=== PATIENT | male | born 1990 | race Caucasian/White ===

== ENCOUNTER 2020-06-02 20:17 | Emergency (ER) | payer SELFPAY ==
[2020-06-02] MEDS ORDERED: Sulfamethoxazole/Trimethoprim 800-160 MG Tab PO ONE (21:10)
[2020-06-02] MEDS ORDERED: traMADol 50 MG Tab PO ONE (21:10)
--- NOTE | 2020-06-02 21:16 | EDM.PDOC ---
ED HPI GENERAL MEDICAL PROBLEM - General Chief Complaint: Lower Extremity Injury/Pain Stated Complaint: PAIN IN TOE Time Seen by Provider: 06/02/20 20:45 Source of Information: Reports: Patient History Limitations: Reports: No Limitations - History of Present Illness INITIAL COMMENTS - FREE TEXT/NARRATIVE: 30 YO WM PRESENTS TO ER WITH LEFT GREAT TOE PAIN AND SWELLING X 4 DAYS. PT REPORTS TENDERNESS BEGAN 4 DAYS AGO BUT TODAY HE NOTICED A PUS POCKET DEVELOP AT THE BASE OF HIS LEFT GREAT TOE PROMPTING ER EVALUATION. PT DENIES ANY HISTORY OF INGROWN TOENAIL OR INJURY TO FOOT/TOES. PT DENIES FEVER/CHILLS, NO ERYTHEMA OR ECCHYMOSIS. PT DENIES ANY OTHER COMPLAINTS AT THIS TIME. PT REPORTS WEARING STEEL TOE BOOTS AND WONDERS IF HIS SHOES ARE THE ISSUE. Duration: Day(s): (4) Location: Reports: Lower Extremity, Left Quality: Reports: Ache Severity: Moderate Improves with: Reports: Rest Worsens with: Reports: Movement Associated Symptoms: Reports: No Other Symptoms - Related Data Allergies Allergy/AdvReac Type Severity Reaction Status Date / Time No Known Drug Allergies Allergy Cannot Verified 06/02/20 20:29 Remember Home Meds: Home Meds Sulfamethoxazole/Trimethoprim [Septra DS] 1 each PO BID #20 tab 06/02/20 [Rx] traMADol [Ultram] 50 mg PO Q4H PRN #15 tab 06/02/20 [Rx] Past Medical History HEENT History: Reports: Other (See Below) Other HEENT History: glasses Musculoskeletal History: Reports: Arthritis, Other (See Below) Other Musculoskeletal History: scoliosis. bone spurs in hip. sciatica Psychiatric History: Reports: Anxiety, PTSD, Other (See Below) Other Psychiatric History: social anxiety disorder - Infectious Disease History Infectious Disease History: Reports: Chicken Pox, Influenza - Past Surgical History HEENT Surgical History: Reports: None Musculoskeletal Surgical History: Reports: Other (See Below) Other Musculoskeletal Surgeries/Procedures:: left wrist secondary to injury to wrist from accident Social & Family History - Tobacco Use Smoking Status *Q: Current Every Day Smoker Years of Tobacco use: 19 Packs/Tins Daily: 1 Second Hand Smoke Exposure: Yes - Caffeine Use Caffeine Use: Reports: Coffee - Recreational Drug Use Recreational Drug Use: Yes Drug Use in Last 12 Months: Yes Recreational Drug Type: Reports: Marijuana/Hashish Recreational Drug Use Frequency: Weekly Review of Systems - Review of Systems Review Of Systems: See Below Constitutional: Reports: No Symptoms Eyes: Reports: No Symptoms Ears: Reports: No Symptoms Nose: Reports: No Symptoms Mouth/Throat: Reports: No Symptoms Respiratory: Reports: No Symptoms Cardiovascular: Reports: No Symptoms GI/Abdominal: Reports: No Symptoms Genitourinary: Reports: No Symptoms Musculoskeletal: Reports: No Symptoms Skin: Reports: Other (PUS POCKET WITH MILD SWELLING TO LEFT GREAT TOE) Neurological: Reports: No Symptoms Psychiatric: Reports: No Symptoms ED EXAM, GENERAL - Physical Exam Exam: See Below Exam Limited By: No Limitations General Appearance: Alert, WD/WN, No Apparent Distress Head: Atraumatic, Normocephalic Neck: Normal Inspection, Supple, Non-Tender, Full Range of Motion Respiratory/Chest: No Respiratory Distress, Lungs Clear, Normal Breath Sounds, No Accessory Muscle Use, Chest Non-Tender Cardiovascular: Normal Peripheral Pulses, Regular Rate, Rhythm, No Edema, No Gallop, No JVD, No Murmur, No Rub GI/Abdominal: Normal Bowel Sounds, Soft, Non-Tender, No Organomegaly, No Distention, No Abnormal Bruit, No Mass Back Exam: Normal Inspection, Full Range of Motion, NT Extremities: Increased Warmth, Redness, Other (PUS POCKET WITH MILD SWELLING TO LEFT GREAT TOE) Neurological: Alert, Oriented, CN II-XII Intact, Normal Cognition, Normal Gait, Normal Reflexes, No Motor/Sensory Deficits Psychiatric: Normal Affect, Normal Mood Skin Exam: Warm, Dry, Intact, Normal Color, No Rash Lymphatic: No Adenopathy Course - Vital Signs Last Recorded V/S: Last Vital Signs Temp 36.8 C 06/02/20 20:29 Pulse 74 06/02/20 20:29 Resp 20 06/02/20 20:29 BP 114/74 06/02/20 20:29 Pulse Ox 98 06/02/20 20:29 - Orders/Labs/Meds Orders: Active Orders 24 hr Category Date Time Status Sulfamethoxazole/Trimethoprim [Septra DS] Med 06/02/20 21:10 Once 1 tab PO ONETIME ONE traMADol [Ultram] Med 06/02/20 21:10 Once 100 mg PO ONETIME ONE Departure - Departure Time of Disposition: 21:17 Disposition: Home, Self-Care 01 Condition: Good Clinical Impression: Paronychia of great toe of left foot - Discharge Information Prescriptions: Sulfamethoxazole/Trimethoprim [Septra DS] 1 each PO BID #20 tab traMADol [Ultram] 50 mg PO Q4H PRN #15 tab PRN Reason: Pain Instructions: Paronychia Referrals: Klarissa Gnozalez MD [Physician] - Forms: ED Department Discharge, ED Return to Work/School Form Additional Instructions: 1. DISCHARGE HOME 2. SEPTRA DS TWICE/DAY X 10 DAYS 3. ULTRAM 50 MG EVERY 4-6 HOURS NEEDED FOR PAIN 4. MOTRIN 600MG EVERY 6 HOURS FOR PAIN 5. FOLLOW UP WITH PCP FOR FURTHER EVALUATION AND TREATMENT 6. RETURN TO ER FOR WORSENING SYMPTOMS Sepsis Event Note (ED) - Evaluation Sepsis Screening Result: No Definite Risk - Focused Exam Vital Signs: Vital Signs Temp Pulse Resp BP Pulse Ox 06/02/20 20:29 36.8 C 74 20 114/74 98 - My Orders Last 24 Hours: My Active Orders 06/02/20 21:10 Sulfamethoxazole/Trimethoprim [Septra DS] 1 tab PO ONETIME ONE traMADol [Ultram] 100 mg PO ONETIME ONE - Assessment/Plan Last 24 Hours: My Active Orders 06/02/20 21:10 Sulfamethoxazole/Trimethoprim [Septra DS] 1 tab PO ONETIME ONE traMADol [Ultram] 100 mg PO ONETIME ONE Assessment:: 1. PARONYCHIA OF LEFT GREAT TOE Plan: 1. DISCHARGE HOME 2. SEPTRA DS TWICE/DAY X 10 DAYS 3. ULTRAM 50 MG EVERY 4-6 HOURS NEEDED FOR PAIN 4. MOTRIN 600MG EVERY 6 HOURS FOR PAIN 5. FOLLOW UP WITH PCP FOR FURTHER EVALUATION AND TREATMENT 6. RETURN TO ER FOR WORSENING SYMPTOMS
== END 2020-06-02 21:30 | disposition home or self-care (01) ==
LOC: KA.ED 20:17
DX: L03.032 Cellulitis of left toe (principal); F17.210 Nicotine dependence, cigarettes, uncomplicated
CPT/HCPCS: 99283; A9270

== ENCOUNTER 2020-09-23 20:27 | Emergency (ER) | payer SELFPAY ==
--- NOTE | 2020-09-23 21:48 | EDM.PDOCBH ---
ED HPI GENERAL MEDICAL PROBLEM - General Chief Complaint: Behavioral/Psych Stated Complaint: FEELING SUIDAL Time Seen by Provider: 09/23/20 21:22 Source of Information: Reports: Patient, Other (friend) History Limitations: Reports: No Limitations - History of Present Illness INITIAL COMMENTS - FREE TEXT/NARRATIVE: Patient presents requesting help and treatment for suicidal thoughts and intent. He has been having suicidal thoughts for quite awhile and [place] lay on the [place] to get run [place]. He has cut his arms. He is having uncontrolled anger outbursts with his and she is scared of him. He wants help and would like to go to the [facility]. He used meth 3 days ago most recently. He denies fever. He hasn't had Covid and last tested negative about 6 weeks ago. Generalized Pain Score (Numeric/FACES): 8 - Related Data Allergies Allergy/AdvReac Type Severity Reaction Status Date / Time No Known Drug Allergies Allergy Cannot Verified 09/23/20 20:35 Remember Past Medical History HEENT History: Reports: Other (See Below) Other HEENT History: glasses Musculoskeletal History: Reports: Arthritis, Other (See Below) Other Musculoskeletal History: scoliosis. bone spurs in hip. sciatica Psychiatric History: Reports: Anxiety, Bipolar, Depression, PTSD, Other (See Below) Other Psychiatric History: social anxiety disorder - Infectious Disease History Infectious Disease History: Reports: Chicken Pox, Influenza - Past Surgical History HEENT Surgical History: Reports: None Musculoskeletal Surgical History: Reports: Other (See Below) Other Musculoskeletal Surgeries/Procedures:: left wrist secondary to injury to wrist from accident Social & Family History - Tobacco Use Tobacco Use Status *Q: Current Every Day Tobacco User Years of Tobacco use: 19 Packs/Tins Daily: 1 - Caffeine Use Caffeine Use: Reports: Coffee - Recreational Drug Use Recreational Drug Type: Reports: Marijuana/Hashish, Methamphetamine Recreational Drug Use Frequency: Weekly ED ROS GENERAL - Review of Systems Review Of Systems: See Below Constitutional: Denies: Fever, Chills, Malaise, Weakness HEENT: Denies: Ear Pain, Throat Pain, Vision Change Respiratory: Denies: Shortness of Breath, Cough Cardiovascular: Denies: Chest Pain, Lightheadedness, Syncope GI/Abdominal: Denies: Abdominal Pain, Diarrhea, Vomiting : Denies: Dysuria, Flank Pain Musculoskeletal: Denies: Neck Pain, Shoulder Pain, Arm Pain, Back Pain Skin: Denies: Cyanosis, Jaundice, Mottled, Pallor, Diaphoresis Neurological: Denies: Confusion, Dizziness, Seizure, Syncope, Trouble Speaking, Difficulty Walking Psychiatric: Reports: Anxiety, Depression, Suicidal Ideation, Other (PTSD). Denies: Hallucinations ED EXAM, BEHAVIORAL HEALTH - Physical Exam Exam: See Below Exam Limited By: No Limitations General Appearance: Alert, WD/WN, No Apparent Distress Eye Exam: Bilateral Eye: EOMI, Normal Inspection, PERRL Ears: Normal External Exam, Hearing Grossly Normal Nose: Normal Inspection, No Blood Throat/Mouth: Normal Inspection, Normal Lips, Normal Oropharynx, Normal Voice, No Airway Compromise Head: Atraumatic, Normocephalic Neck: Normal Inspection, Full Range of Motion Respiratory/Chest: No Respiratory Distress, Lungs Clear, Normal Breath Sounds, No Accessory Muscle Use Cardiovascular: Regular Rate, Rhythm, No Murmur GI/Abdominal: Soft, Non-Tender, No Distention Back Exam: Normal Inspection, Full Range of Motion. No: CVA Tenderness (L), CVA Tenderness (R) Extremities: Normal Inspection, Normal Range of Motion Neurological: Alert, Normal Mood/Affect, Normal Cognition, No Motor/Sensory Deficits, Oriented x 3 Psychiatric: Alert, Normal Cognition, Oriented, Depressed Mood, Suicidal Plan, Suicidal Thoughts Skin Exam: Warm, Dry, Intact, Normal color, No rash COURSE, BEHAVIORAL HEALTH COMP - Course Vital Signs: Last Vital Signs Temp 96.9 F 09/23/20 20:34 Pulse 87 09/23/20 20:34 Resp 16 09/23/20 20:34 BP 118/74 09/23/20 20:34 Pulse Ox 97 09/23/20 20:34 Orders, Labs, Meds: Laboratory Tests 09/23/20 09/23/20 09/23/20 Range/Units 21:10 21:33 21:33 WBC 7.83 (5.00-10.00) 10^3/uL RBC 4.96 (4.50-6.00) 10^6/uL Hgb 14.8 (13.0-17.0) g/dL Hct 43.4 (40.0-52.0) % MCV 87.5 (82.0-92.0) fL MCH 29.8 (27.0-31.0) pg MCHC 34.1 (32.0-36.0) g/dL RDW 13.0 (11.5-14.5) % Plt Count 295 (150-400) 10^3/uL MPV 9.8 (7.4-10.4) fL Immature Gran % (Auto) 0.1 (0.0-5.0) % Neut % (Auto) 42.1 L (50.0-70.0) % Lymph % (Auto) 43.4 H (20.0-40.0) % Bulloch % (Auto) 9.8 H (2.0-8.0) % Eos % (Auto) 4.1 H (1.0-3.0) % Baso % (Auto) 0.5 (0.0-1.0) % Neut # (Auto) 3.29 (2.50-7.00) 10^3/uL Lymph # (Auto) 3.40 (1.00-4.00) 10^3/uL Bulloch # (Auto) 0.77 (0.10-0.80) 10^3/uL Eos # (Auto) 0.32 H (0.10-0.30) 10^3/uL Baso # (Auto) 0.04 (0.00-0.10) 10^3/uL Immature Gran # (Auto) 0.01 (0.00-0.50) 10^3/uL Sodium 138 (136-145) mmol/L Potassium 3.6 (3.5-5.1) mmol/L Chloride 102 (98-107) mmol/L Carbon Dioxide 27.3 (21.0-32.0) mmol/L Anion Gap 12.3 (5-15) mmol/L BUN 18 (7-18) mg/dL Creatinine 1.07 (0.51-1.17) mg/dL Est Cr Clr Drug Dosing 96.78 mL/min Estimated GFR (MDRD) > 60 mL/min Glucose 105 (70-140) mg/dL Calcium 8.7 (8.7-10.3) mg/dL Total Bilirubin 0.3 (0.2-1.0) mg/dL AST 23 (15-37) U/L ALT 33 (14-63) U/L Alkaline Phosphatase 50 (46-116) U/L Total Protein 7.5 (6.4-8.2) g/dL Albumin 3.87 (3.40-5.00) g/dL Urine Opiates Screen Negative (NEGATIVE) Ur Oxycodone Screen Negative (NEGATIVE) Urine Methadone Screen Negative (NEGATIVE) Ur Propoxyphene Screen Negative (NEGATIVE) Ur Barbiturates Screen Negative (NEGATIVE) Ur Tricyclics Screen Negative (NEGATIVE) Ur Phencyclidine Scrn Negative (NEGATIVE) Ur Amphetamine Screen Positive H (NEGATIVE) U Methamphetamines Scrn Positive H (NEGATIVE) U Benzodiazepines Scrn Positive H (NEGATIVE) U Cocaine Metab Screen Negative (NEGATIVE) U Marijuana (THC) Screen Positive H (NEGATIVE) Ethyl Alcohol (NOT DETECTED) mg/dL SARS CoV-2 RNA Rapid LACIE (NEGATIVE) 09/23/20 09/23/20 Range/Units 21:33 22:48 WBC (5.00-10.00) 10^3/uL RBC (4.50-6.00) 10^6/uL Hgb (13.0-17.0) g/dL Hct (40.0-52.0) % MCV (82.0-92.0) fL MCH (27.0-31.0) pg MCHC (32.0-36.0) g/dL RDW (11.5-14.5) % Plt Count (150-400) 10^3/uL MPV (7.4-10.4) fL Immature Gran % (Auto) (0.0-5.0) % Neut % (Auto) (50.0-70.0) % Lymph % (Auto) (20.0-40.0) % Bulloch % (Auto) (2.0-8.0) % Eos % (Auto) (1.0-3.0) % Baso % (Auto) (0.0-1.0) % Neut # (Auto) (2.50-7.00) 10^3/uL Lymph # (Auto) (1.00-4.00) 10^3/uL Bulloch # (Auto) (0.10-0.80) 10^3/uL Eos # (Auto) (0.10-0.30) 10^3/uL Baso # (Auto) (0.00-0.10) 10^3/uL Immature Gran # (Auto) (0.00-0.50) 10^3/uL Sodium (136-145) mmol/L Potassium (3.5-5.1) mmol/L Chloride (98-107) mmol/L Carbon Dioxide (21.0-32.0) mmol/L Anion Gap (5-15) mmol/L BUN (7-18) mg/dL Creatinine (0.51-1.17) mg/dL Est Cr Clr Drug Dosing mL/min Estimated GFR (MDRD) mL/min Glucose (70-140) mg/dL Calcium (8.7-10.3) mg/dL Total Bilirubin (0.2-1.0) mg/dL AST (15-37) U/L ALT (14-63) U/L Alkaline Phosphatase (46-116) U/L Total Protein (6.4-8.2) g/dL Albumin (3.40-5.00) g/dL Urine Opiates Screen (NEGATIVE) Ur Oxycodone Screen (NEGATIVE) Urine Methadone Screen (NEGATIVE) Ur Propoxyphene Screen (NEGATIVE) Ur Barbiturates Screen (NEGATIVE) Ur Tricyclics Screen (NEGATIVE) Ur Phencyclidine Scrn (NEGATIVE) Ur Amphetamine Screen (NEGATIVE) U Methamphetamines Scrn (NEGATIVE) U Benzodiazepines Scrn (NEGATIVE) U Cocaine Metab Screen (NEGATIVE) U Marijuana (THC) Screen (NEGATIVE) Ethyl Alcohol < 3 H (NOT DETECTED) mg/dL SARS CoV-2 RNA Rapid LACIE Negative (NEGATIVE) Re-Assessment/Re-Exam: I discussed case briefly with a case management social worker to get placed in [facility]. She is now visiting with the patient on the phone. The [facility] requested that we try to get him into [facility] since he is a [place] resident, otherwise they do have space for him. I called [facility] and was told that they require a "hold" but don't know that it will work from [place]. So I called Dr. Dias back at [place] and he is willing to take him. He also needs a hold and Etoh and Covid before we take him. These are pending now. Etoh and covid are negative. The hold is signed. I discussed with Yobani DUONG who say that "hold" transfers are now being done by EMS unless patient is combative then PD will ride along in ambulance. Departure - Departure Time of Disposition: 23:50 Disposition: DC/Tfer to Psych Hosp/Unit 65 Condition: Good Clinical Impression: Suicidal behavior with attempted self-injury, Suicidal intent, PTSD (post- traumatic stress disorder), Anxiety Depression Qualifiers: Depression Type: unspecified Qualified Code(s): F32.9 - Major depressive disorder, single episode, unspecified - Discharge Information Referrals: Klarissa Gonzalez MD [Primary Care Provider] - Forms: ED Department Discharge Sepsis Event Note (ED) - Evaluation Sepsis Screening Result: No Definite Risk - Focused Exam Vital Signs: Vital Signs Temp Pulse Resp BP Pulse Ox 09/23/20 20:34 96.9 F 87 16 118/74 97
[2020-09-23 21:53] LABS: THC SCREEN,URINE 50 NG/ML POSITIVE (NEGATIVE)
[2020-09-23 21:54] LABS: BENZODIAZEPINES SCREEN,URINE POSITIVE (NEGATIVE)
[2020-09-23 21:55] LABS: BARBITURATE SCREEN,URINE NEGATIVE (NEGATIVE)
[2020-09-23 21:56] LABS: TCA SCREEN,URINE NEGATIVE (NEGATIVE)
[2020-09-23 21:58] LABS: ANION GAP 12.3 mmol/L (5-15); CHLORIDE,CL 102 mmol/L (98-107); SODIUM,NA 138 mmol/L (136-145)
[2020-09-24 00:20] VITALS: BP 116/75; PULSE 70
== END 2020-09-24 00:35 ==
LOC: KA.ED 20:27
DX: F32.9 Major depressive disorder, single episode, unspecified (principal); S41.112A Laceration without foreign body of left upper arm, initial encounter; S41.111A Laceration without foreign body of right upper arm, initial encounter; F43.10 Post-traumatic stress disorder, unspecified; Z20.822 Contact with and (suspected) exposure to COVID-19; Z72.0 Tobacco use; X78.9XXA Intentional self-harm by unspecified sharp object, initial encounter
CPT/HCPCS: 36415; 80053; 80305-QW; 80307; 85025; 99284; 99285; U0002

== ENCOUNTER 2022-01-25 16:19 | Emergency (ER) | payer MEDICAID | END 2022-01-25 17:50 | disposition home or self-care (01) | LOC: KA.ED 16:19 | DX: S01.511A Laceration without foreign body of lip, initial encounter (principal); Y04.0XXA Assault by unarmed brawl or fight, initial encounter | CPT/HCPCS: 70450; 99283; 99283-25 ==